=== PATIENT | male | born 1955 | race Caucasian/White ===

== ENCOUNTER 2017-05-30 09:28 | Day surgery (SDC) | payer BC, OTHER ==
[2017-05-28 14:48] VITALS: BMI 30.7
[~2017-05-30 09:28] MED LIST: LACTATED RINGERS 1,000 ML IV SCH
[2017-05-30 09:39] VITALS: TEMP 97.9
[2017-05-30] MEDS ORDERED: LIDOCAINE 1% 20 ML VIAL (10MG/ML) FOR IV START INTRADERMA ONE (09:49)
[2017-05-30] MEDS ORDERED: PROPOFOL 10 MG/ML 20 ML VIAL IV ONE (10:45)
--- NOTE | 2017-05-30 10:51 | P.GSHP ---
History of Present Illness H&P Date: 05/30/17 Chief Complaint: Screening colonoscopy, history of colon Polyps This is a 62-year-old male who presents today for screening colonoscopy. Patient has a previous colonoscopy 5 years ago which has had have colon polyps. Past Medical History Past Medical History: Chest Pain / Angina, Hypertension Additional Past Medical History / Comment(s): "stress test neg per S.O.", History of Any Multi-Drug Resistant Organisms: None Reported Past Surgical History: Hernia Repair, Orthopedic Surgery Additional Past Surgical History / Comment(s): colonoscopy, left cataract, left knee surgery, Past Anesthesia/Blood Transfusion Reactions: No Reported Reaction Smoking Status: Former smoker - Past Family History Mother Family Medical History: No Reported History Medications and Allergies Home Medications Medication Instructions Recorded Confirmed Type Aspirin [Adult Low Dose Aspirin EC] 81 mg PO DAILY 05/28/17 05/30/17 History Hydrochlorothiazide [Hydrodiuril] 12.5 mg PO DAILY 05/28/17 05/30/17 History Losartan Potassium 50 mg PO DAILY 05/28/17 05/30/17 History Allergies Allergy/AdvReac Type Severity Reaction Status Date / Time No Known Allergies Allergy Verified 05/30/17 09:46 Surgical - Exam Vital Signs Temp Pulse Resp BP Pulse Ox 97.9 F 86 16 181/84 99 05/30/17 09:34 05/30/17 09:34 05/30/17 09:34 05/30/17 09:34 05/30/17 09:34 - General well developed, no distress - Eyes PERRL - ENT normal pinna - Neck no masses - Respiratory normal expansion - Cardiovascular Rhythm: regular - Abdomen Abdomen: soft, non tender Assessment and Plan Assessment: History: Polyps. We'll perform colonoscopy.
[2017-05-30] MEDS ORDERED: LACTATED RINGERS 1,000 ML IV ONE (11:04)
--- NOTE | 2017-05-30 11:10 | P.OP ---
Date of Procedure: 05/30/17 Preoperative Diagnosis: Screening colonoscopy History of colon polyps Postoperative Diagnosis: Diverticulosis Procedure(s) Performed: Colonoscopy Anesthesia: MAC Surgeon: Robby Rodriguez Pathology: none sent Condition: stable Disposition: PACU Description of Procedure: The patient's placed on the endoscopy table lateral position. He received IV sedation. Digital rectal exam was performed which revealed no abnormalities. The flexible colonoscope was then placed patient anus and passed throughout the entire colon. The ileocecal valve was visualized. Cecum, ascending and transverse colon appeared normal. Scope was then brought back into the descending and sigmoid colon were diverticular changes noted. Scope was then brought back the rectum and this appeared normal. Scope was withdrawn for patient.
[2017-05-30 11:26] VITALS: BP 130/85; PULSE 75; RESP 18
== END 2017-05-30 11:36 | disposition home or self-care (01) ==
LOC: ORWHC2ENDO 09:28
PROVIDERS: ATTEND Surgery
DX: Z12.11 Encounter for screening for malignant neoplasm of colon (principal); K57.30 Diverticulosis of large intestine without perforation or abscess without bleeding; Z86.010 Personal history of colon polyps; I10 Essential (primary) hypertension; Z79.82 Long term (current) use of aspirin; Z79.899 Other long term (current) drug therapy; Z87.891 Personal history of nicotine dependence; Z98.890 Other specified postprocedural states
CPT/HCPCS: J2704; G0105

== ENCOUNTER → 2018-02-04 | Outpatient (CLI) | payer MEDICARE, OTHER ==
--- NOTE | 2018-02-04 13:19 | CT ---
EXAMINATION TYPE: CT abdomen w con DATE OF EXAM: 02/04/2018 COMPARISON: None INDICATION: Loss of appetite, upset stomach, rectal bleeding DLP: 1284 mGycm, Automated exposure control for dose reduction was used. CONTRAST: 100 mL of Isovue 300. Study performed with Oral Contrast TECHNIQUE: Axial images were obtained from above the diaphragm to the pubic rami in the axial plane a t 5 mm thick sections. Reconstructed images are reviewed on the computer in the coronal plane. FINDINGS: Limited CT sections are obtained the lung bases. The lung bases are clear. A small hiatal hernia is present. CT ABDOMEN: Liver: Normal Spleen: Normal Pancreas: Normal Adrenal glands: The adrenal glands are normal. Gallbladder: Normal Kidneys: No masses are evident. No hydronephrosis is present. No cysts are present. Delayed images were obtained through the kidneys, which remain unremarkable. Aorta: Vascular calcification is within the aorta. Inferior vena cava: Normal. CT PELVIS upper: There is incomplete distention at the level of the cecum. It is unclear whether this is underlying ma ss or related to incomplete distention. Additional evaluation of the cecum is recommended. The ileoce jean marie valve is visualized appears normal. Terminal ileum is unremarkable. There are loops of bowel whic h are incompletely distended or lack oral contrast limiting their evaluation. Appendix: Normal as visualized. Urinary bladder: Superior portion visualized is normal. Lower portion of the [id number]. IMPRESSIONS: 1. Thickening and incomplete distention of the cecum. Additional evaluation with CT is recommended. Underlying mass is not excluded.
== END | disposition home or self-care (01) ==
LOC: RADCTMAIN 06:56
PROVIDERS: ATTEND Family Medicine
DX: K63.89 Other specified diseases of intestine (principal)
CPT/HCPCS: 74160

== ENCOUNTER 2018-07-17 11:47 | Day surgery (SDC) | payer MEDICARE, OTHER ==
[2018-07-16 12:20] VITALS: BMI 29.5
[2018-07-17 12:24] VITALS: TEMP 97.8
[2018-07-17] MEDS ORDERED: LIDOCAINE 1% 20 ML VIAL (10MG/ML) FOR IV START INTRADERMA ONE (12:35)
[2018-07-17] MEDS ORDERED: PROPOFOL 10 MG/ML 20 ML VIAL IV ONE (12:53)
[2018-07-17] MEDS ORDERED: LIDOCAINE 1% INJ 10MG/ML (20 ML MDV) ONE (12:53)
--- NOTE | 2018-07-17 13:09 | P.PCN ---
Date of Procedure: 07/17/18 Procedure(s) Performed: BRIEF HISTORY: Patient is a 63-year-old pleasant male, scheduled for an elective colonoscopy as a part of evaluation of abnormal CT of abdomen that showed possible lesion in the cecum. PROCEDURE PERFORMED: Colonoscopy. PREOPERATIVE DIAGNOSIS: Abnormal CAT scan showing questionable lesion in the cecum. IV sedation per Anesthesia. PROCEDURE: After informed consent was obtained, the patient, was brought into the endoscopy unit. IV sedation was administered by Anesthesia under continuous monitoring. Digital rectal examination was normal. Initially the Olympus CF- 160 flexible video colonoscope was then inserted in the rectum, gradually advanced into the cecum without any difficulty. Careful examination was performed as the scope was gradually being withdrawn. Ileocecal valve and the appendiceal orifice were visualized and appeared normal. Prep was excellent. Mucosa of the cecum, ascending colon, transverse colon, descending colon, sigmoid colon, and rectum appeared normal. Retroflexion was performed in the rectum and small internal hemorrhoids were seen. The patient tolerated the procedure well. IMPRESSION: Normal-appearing colon from rectum to cecum with no evidence of colorectal neoplasia. RECOMMENDATIONS: Findings of this examination were discussed with the patient as well as his family. He was advised to have a repeat screening colonoscopy in 10 years.
[2018-07-17 13:13] VITALS: RESP 16
[2018-07-17 13:43] VITALS: BP 168/85; PULSE 71
== END 2018-07-17 13:55 | disposition home or self-care (01) ==
LOC: ORWHC2ENDO 11:47
PROVIDERS: ATTEND Internal Medicine Gastroenterology
DX: K64.8 Other hemorrhoids (principal); R94.8 Abnormal results of function studies of other organs and systems; Z79.899 Other long term (current) drug therapy; I10 Essential (primary) hypertension; Z87.891 Personal history of nicotine dependence; Z79.82 Long term (current) use of aspirin
CPT/HCPCS: 45378; J2001; J2704

== ENCOUNTER 2018-09-29 12:25 | Emergency (ER) | payer MEDICARE, OTHER ==
[2018-09-29 12:29] VITALS: BP 155/90; PULSE 74; RESP 18; TEMP 97.8
--- NOTE | 2018-09-29 12:47 | ED ---
ENT HPI - General Chief complaint: ENT Stated complaint: plugged ear Time Seen by Provider: 09/29/18 12:34 Source: patient, RN notes reviewed Mode of arrival: ambulatory Limitations: no limitations - History of Present Illness Initial comments: 63-year-old male presents emergency Department chief complaint of bilateral ear plugged. Patient states she's had wax buildup in the past. Patient states it feels similar. Denies any drainage, fever, chills, pain, headache, dizziness, neck pain or This. Patient states he does have decreased hearing. - Related Data Home Medications Medication Instructions Recorded Confirmed Aspirin [Adult Low Dose Aspirin EC] 81 mg PO DAILY 05/28/17 09/29/18 Celecoxib [CeleBREX] 200 mg PO DAILY 07/16/18 09/29/18 Losartan/Hydrochlorothiazide 1 each PO DAILY 07/16/18 09/29/18 [Losartan-Hctz 100-12.5 mg Tab] Multivitamin [Multivitamins Adult 1 each PO DAILY 07/16/18 09/29/18 Gummies] Allergies Allergy/AdvReac Type Severity Reaction Status Date / Time No Known Allergies Allergy Verified 09/29/18 12:28 Review of Systems ROS Statement: Those systems with pertinent positive or pertinent negative responses have been documented in the HPI. ROS Other: All systems not noted in ROS Statement are negative. Past Medical History Past Medical History: Hypertension Additional Past Medical History / Comment(s): "stress test neg per S.O.", History of Any Multi-Drug Resistant Organisms: None Reported Past Surgical History: Hernia Repair, Orthopedic Surgery Additional Past Surgical History / Comment(s): colonoscopy, left cataract,RIGHT CATARACT SURGERY, RIGHT RETINAL SURGERY , left knee surgery, Past Anesthesia/Blood Transfusion Reactions: No Reported Reaction Past Psychological History: No Psychological Hx Reported Smoking Status: Former smoker Past Alcohol Use History: None Reported Past Drug Use History: None Reported - Past Family History Mother Family Medical History: No Reported History General Exam Limitations: no limitations General appearance: alert, in no apparent distress Head exam: Present: atraumatic, normocephalic, normal inspection Eye exam: Present: normal appearance, PERRL, EOMI. Absent: scleral icterus, conjunctival injection, periorbital swelling ENT exam: Present: normal oropharynx, mucous membranes moist, TM's normal bilaterally. Absent: normal external ear exam (Bilateral cerumen impaction) Neck exam: Present: normal inspection, full ROM. Absent: tenderness, meningismus, lymphadenopathy Respiratory exam: Present: normal lung sounds bilaterally. Absent: respiratory distress, wheezes, rales, rhonchi, stridor Cardiovascular Exam: Present: regular rate, normal rhythm, normal heart sounds. Absent: systolic murmur, diastolic murmur, rubs, gallop, clicks Course Vital Signs 09/29/18 12:26 Temperature 97.8 F Pulse Rate 74 Respiratory 18 Rate Blood Pressure 155/90 O2 Sat by Pulse 100 Oximetry Procedures - Ear Wax Removal Both Ears Cerumenolytic Used: 5-10% Sodium Bicarb solution Ear Canal Irrigated by: RNMD Ear Canal Irrigated With: warm saline with H2O2 using syringe/angiocath Results: Re-examined: cerumen removed completely Ear Canal: atraumatic Patient Tolerated Procedure: well, no complications Complications: no problems Medical Decision Making - Medical Decision Making 63-year-old male presented for ears being plugged. He had a cerumen impaction, this was lavaged, patient's symptoms have improved no signs of infection patient will be discharged. Disposition Clinical Impression: Cerumen impaction Disposition: HOME SELF-CARE Condition: Stable Instructions (If sedation given, give patient instructions): Cerumen Impaction (ED) Additional Instructions: Please return to the Emergency Department if symptoms worsen or any other concerns. Is patient prescribed a controlled substance at d/c from ED?: No Referrals: Oli Quevedo MD [Primary Care Provider] - 1-2 days Time of Disposition: 13:29
== END 2018-09-29 13:30 | disposition home or self-care (01) ==
LOC: EC 12:25
DX: H61.23 Impacted cerumen, bilateral (principal); I10 Essential (primary) hypertension; Z87.891 Personal history of nicotine dependence; Z79.82 Long term (current) use of aspirin; Z79.899 Other long term (current) drug therapy
CPT/HCPCS: 69209; 99282

== ENCOUNTER → 2019-04-21 | Outpatient (CLI) | payer MEDICARE, OTHER ==
[2019-04-21 23:40] LABS: African American GFR (CKD) 51.3 (60.0-200.0); Anion Gap 10.4 mmol/L (4.00-12.00); Carbon Dioxide 29.6 mmol/L (21.6-31.8); Potassium 3.7 mmol/L (3.5-5.5)
== END | disposition home or self-care (01) ==
LOC: LABWHC1 15:15
PROVIDERS: ATTEND Internal Medicine Cardiovascular Disease
DX: I49.1 Atrial premature depolarization (principal)
CPT/HCPCS: 36415; 80051; 82565; 84443; 84520